=== PATIENT | female | born 1985 | race Caucasian/White ===

== ENCOUNTER 2018-05-07 18:29 | Emergency (ER) | payer BC, OTHER ==
[~2018-05-07] VITALS: Ht 167.6 cm; Wt 147.4 kg
[2018-05-07 18:40] VITALS: BP 121/68
--- NOTE | 2018-05-07 18:43 | NUR ---
PT AMBULATED TO ER LOBBY, WAITING FOR AN OPEN ER BED.
--- NOTE | 2018-05-07 20:30 | NUR ---
32/F PRESENT TO ER C/O ABDOMINAL PAIN AND COLD SYMPTOMS x 2 DAYS. DENIES NVD, CP OR SOB. C/O COUGH. ABD SOFT, NONTENDER AND ROUND. HX: HYPOTHYROID MEDS: SYNTHROID 150MCG
[2018-05-07] MEDS ORDERED: KETOROLAC 60 MG/2 ML VIAL IM ONE (20:45)
[2018-05-07 21:22] VITALS: BP 129/58
--- NOTE | 2018-05-07 21:23 | NUR ---
Patient discharged with v/s stable. Written and verbal after care instructions given and explained. Patient alert, oriented and verbalized understanding of instructions. Ambulatory with steady gait. All questions addressed prior to discharge. ID band removed. Patient advised to follow up with PMD. Rx of MOTRIN AND PREDNISONE given. Patient educated on indication of medication including possible reaction and side effects. Opportunity to ask questions provided and answered.
== END 2018-05-07 21:17 | disposition home or self-care (01) ==
LOC: MED 18:29
DX: R10.30 Lower abdominal pain, unspecified (principal); R05 Cough; R19.7 Diarrhea, unspecified; E07.9 Disorder of thyroid, unspecified
CPT/HCPCS: 81002; 81025; 96372; 99283; J1885

== ENCOUNTER 2022-11-24 21:20 | Emergency (ER) | payer OTHER ==
[~2022-11-24] VITALS: Ht 170.2 cm; Wt 158.8 kg
[2022-11-24 21:35] VITALS: BP 141/75
--- NOTE | 2022-11-24 21:38 | NUR ---
to lobby a/w bed ambulatory
--- NOTE | 2022-11-24 22:43 | NUR ---
Patient taken to bed 9.
--- NOTE | 2022-11-24 22:56 | NUR ---
Patient received on bed lying comfortably and awake. Alert and oriented x4. No acute distress. Complained of lower abdominal pain with scale of 10/10. Respirations even and unlabored.
[2022-11-24] MEDS ORDERED: LEVO0.155 PO (23:07)
--- NOTE | 2022-11-24 23:30 | NUR ---
Dr. Johnson examining patient.
[2022-11-24 23:42] LABS: APPEARANCE,URINE CLEAR (CLEAR); BILIRUBIN,URINE NEGATIVE (NEGATIVE); BLOOD, URINE NEGATIVE (NEGATIVE); COLOR,URINE YELLOW (YELLOW); LEUKOCYTE ESTERASE ,URINE NEGATIVE (NEGATIVE); NITRITE, URINE NEGATIVE (NEGATIVE); UGLUCOSE NEGATIVE (NEGATIVE)
[2022-11-25 00:38] LABS: BASOPHILS # (AUTO) 0.1 K/uL (0.00-0.22); BASOPHILS % (AUTO) 0.9 % (0.0-2.0); EOSINOPHILS # (AUTO) 0.2 K/uL (0-0.4); EOSINOPHILS % (AUTO) 1.6 % (0.0-4.0); HEMATOCRIT 33.6 % (36-48); HEMOGLOBIN 11.1 g/dL (12.0-16.0); LYMPHOCYTES # (AUTO) 3.8 K/uL (2.5-16.5); LYMPHOCYTES % (AUTO) 33.2 % (20.5-51.1); MEAN CORPUSCULAR HEMOGLOBIN 27 pg (27-31); MEAN CORPUSCULAR HGB CONC 33 g/dL (33-37); MEAN CORPUSCULAR VOLUME 82.6 fL (80-94); MONOCYTES # (AUTO) 0.6 K/uL (0.8-1.0); MONOCYTES % (AUTO) 5.5 % (1.7-9.3); NEUTROPHILS # (AUTO) 6.8 K/uL (1.8-7.7); NEUTROPHILS % (AUTO) 58.8 % (42.2-75.2); PLATELET COUNT (AUTO) 327 K/uL (140-450); RED BLOOD CELL COUNT(AUTO) 4.07 MIL/uL (4.20-5.40); RED CELL DISTRIBUTION WIDTH 14.5 % (11.6-13.7); WHITE BLOOD COUNT (AUTO) 11.5 K/uL (4.8-10.8)
[2022-11-25 00:57] LABS: ALBUMIN 3.4 g/dL (3.4-5.0); ANION GAP 11.2 (8-16); CARBON DIOXIDE 27.3 mmol/L (21-32); CREATININE 0.7 mg/dL (0.6-1.3); POTASSIUM 3.5 mmol/L (3.5-5.1); TOTAL BILIRUBIN 0.4 mg/dL (0.0-1.0)
--- NOTE | 2022-11-25 01:28 | NUR ---
PT TAKEN BY [facility]EPHANIE TO [facility] FOR WAIT AND RELEASE
--- NOTE | 2022-11-25 02:43 | NUR ---
pt back from painted post for [facility] via ambulance.
[2022-11-25] MEDS ORDERED: METR-435 PO (05:48)
[2022-11-25] MEDS ORDERED: NAPR-54 PO (05:48)
--- NOTE | 2022-11-25 05:55 | NUR ---
Note tyroneone in EDM - 11/25/22 at 0558 by [id number] Patient discharged by ER , Dr. Johnson, with v/s stable. Written and verbal after care instructions given and explained. Patient verbalized understanding. Ambulatory with steady gait. All questions addressed prior to discharge. Advised to follow up with PMD.
[2022-11-25 05:56] VITALS: BP 107/59
--- NOTE | 2022-11-25 05:58 | NUR ---
Patient discharged by ER MD, Dr. Johnson, with v/s stable. Written and verbal after care instructions given and explained. Patient alert, oriented and verbalized understanding of instructions. Ambulatory with steady gait. All questions addressed prior to discharge. ID band removed. Patient advised to follow up with PMD. Rx of Metronidazole and Flagyl given. Patient educated on indication of medication including possible reaction and side effects. Opportunity to ask questions provided and answered.
== END 2022-11-25 05:53 | disposition home or self-care (01) ==
LOC: MED 21:20
DX: N76.0 Acute vaginitis (principal); B96.89 Other specified bacterial agents as the cause of diseases classified elsewhere; E03.9 Hypothyroidism, unspecified; Z79.899 Other long term (current) drug therapy; Z79.1 Long term (current) use of non-steroidal anti-inflammatories (NSAID); Z79.2 Long term (current) use of antibiotics
CPT/HCPCS: 36415; 80053; 81003; 81025; 83605; 85025; 87040; 87210; 99283

== ENCOUNTER 2023-06-16 20:11 | Inpatient (IN) | payer OTHER ==
[~2023-06-16] VITALS: Ht 175.3 cm; Wt 145.1 kg
[2023-06-16 20:11] VITALS: BP 134/84; PULSE 86; RESP 16; TEMP 98; O2SAT 98
[~2023-06-16 20:11] MED LIST: LEVO0.155 PO; METR-435 PO; NAPR-54 PO
[2023-06-16] MEDS ORDERED: HYDROmorphone PFS 2 MG/ML SYR IVP ONE (20:55)
[2023-06-16] MEDS ORDERED: ONDANSETRON 4 MG/2 ML VIAL IVP ONE (20:55)
[2023-06-16] MEDS ORDERED: NACL 0.9% 1,000 ML IV SCH (20:55)
[2023-06-16 21:20] LABS: BASOPHILS # (AUTO) 0.1 K/uL (0.00-0.22); BASOPHILS % (AUTO) 0.4 % (0.0-2.0); EOSINOPHILS # (AUTO) 0.1 K/uL (0-0.4); EOSINOPHILS % (AUTO) 0.7 % (0.0-4.0); HEMATOCRIT 35.8 % (36-48); HEMOGLOBIN 11.8 g/dL (12.0-16.0); LYMPHOCYTES # (AUTO) 1.9 K/uL (2.5-16.5); LYMPHOCYTES % (AUTO) 15.5 % (20.5-51.1); MEAN CORPUSCULAR HEMOGLOBIN 27 pg (27-31); MEAN CORPUSCULAR HGB CONC 33 g/dL (33-37); MEAN CORPUSCULAR VOLUME 83.1 fL (80-94); MONOCYTES # (AUTO) 0.6 K/uL (0.8-1.0); MONOCYTES % (AUTO) 5.1 % (1.7-9.3); NEUTROPHILS # (AUTO) 9.7 K/uL (1.8-7.7); NEUTROPHILS % (AUTO) 78.3 % (42.2-75.2); PLATELET COUNT (AUTO) 284 K/uL (140-450); RED BLOOD CELL COUNT(AUTO) 4.31 MIL/uL (4.20-5.40); RED CELL DISTRIBUTION WIDTH 14.6 % (11.6-13.7); WHITE BLOOD COUNT (AUTO) 12.3 K/uL (4.8-10.8)
[2023-06-16 21:59] LABS: ALBUMIN 3.5 g/dL (3.4-5.0); ANION GAP 11.1 (8-16); CALCIUM 8.6 mg/dL (8.5-10.1); CARBON DIOXIDE 26.6 mmol/L (21-32); CREATININE 0.8 mg/dL (0.6-1.3); POTASSIUM 3.7 mmol/L (3.5-5.1); TOTAL BILIRUBIN 0.4 mg/dL (0.0-1.0); TOTAL PROTEIN, SERUM 7.3 g/dL (6.4-8.2)
[2023-06-16 22:18] LABS: APPEARANCE,URINE CLEAR (CLEAR); BILIRUBIN,URINE NEGATIVE (NEGATIVE); BLOOD, URINE 2+ (NEGATIVE); COLOR,URINE YELLOW (YELLOW); LEUKOCYTE ESTERASE ,URINE NEGATIVE (NEGATIVE); NITRITE, URINE NEGATIVE (NEGATIVE); PROTEIN,URINE NEGATIVE (NEGATIVE); UGLUCOSE NEGATIVE (NEGATIVE); UROBILINOGEN,URINE 0.2 EU/dL (0.2 - 1)
[2023-06-16 22:47] LABS: BACTERIA,URINE >30 (MANY) /HPF (None Seen); MUCUS,URINE 1+ /LPF (None Seen); RBC,URINE 0-5 /HPF (0-5); SQUAMOUS EPITHELIAL CELL,UR 4-10 (MOD) /LPF (0-3 (FEW)); WBC,URINE 0-5 /HPF (0-5)
[2023-06-17] VITALS (8 sets, daily range): BP systolic 122–154; BP diastolic 63–90; PULSE 72–95; RESP 14–36; TEMP 98.3–98.8; O2SAT 92–100
[2023-06-17] MEDS ORDERED: HYDROmorphone PFS 2 MG/ML SYR IVP ONE (05:00)
[2023-06-17] MEDS ORDERED: LEVO0.173 PO (05:10)
[2023-06-17] MEDS ORDERED: metroNIDAZOLE 500 MG/NS PREMIX 100 ML IV ONE (06:20)
[2023-06-17] MEDS ORDERED: cefTRIAXone 2,000 MG in DEXTROSE 5% 100 ML IV ONE (06:20)
[2023-06-17] MEDS ORDERED: cefTRIAXone 2,000 MG VIAL ONE (06:28)
[2023-06-17] MEDS ORDERED: MAGNESIUM OXIDE 400 MG TAB PO PRN (06:45)
[2023-06-17] MEDS ORDERED: MAG SULF 2000 MG/WATER PREMIX 50 ML IV PRN (06:45)
[2023-06-17] MEDS ORDERED: ACETAMINOPHEN 325 MG TAB PO PRN (06:45)
[2023-06-17] MEDS ORDERED: POTASSIUM CHLORIDE 10 MEQ TABER PO PRN (06:45)
[2023-06-17] MEDS ORDERED: HYDROcodone/APAP 5/325 MG 1 TAB TAB PO PRN (06:45)
[2023-06-17] MEDS ORDERED: MORPHINE SULFATE 2 MG/ML SYR IVP PRN ×2 (06:45→15:30)
[2023-06-17] MEDS ORDERED: KCL 20 MEQ IN 100 mL PREMIX 200 ML IV PRN (06:45)
[2023-06-17] MEDS: NACL 0.9% 1,000 ML IV SCH (10:23)
[2023-06-17] MEDS ORDERED: MIDAZOLAM 2 MG/2 ML VIAL ONE (12:15)
[2023-06-17] MEDS ORDERED: fentaNYL citrate 0.05 MG/ML VIAL ONE (12:16)
[2023-06-17] MEDS ORDERED: LIDOCAINE/EPI MPF 1%1:200000 30 ML VIAL INJ ONE (12:50)
[2023-06-17] MEDS ORDERED: SUGAMMADEX SODIUM 200 MG/2 ML VIAL IV ONE ×2 (13:40)
[2023-06-17] MEDS ORDERED: ACETAMINOPHEN 100 ML IV ONE (14:27)
[2023-06-17] MEDS ORDERED: BUPIVACAINE-MPF 0.25% 30 ML VIAL INJ ONE (15:17)
[2023-06-17] MEDS ORDERED: MORPHINE SULFATE 4 MG/ML SYR IV PRN (15:30)
[2023-06-17] MEDS ORDERED: fentaNYL citrate 0.05 MG/ML VIAL IVP SCH (16:20)
[2023-06-17] MEDS: HYDROmorphone 1 MG/ML AMP IVP PRN (20:23)
[2023-06-17] MEDS: metroNIDAZOLE 500 MG/NS PREMIX 100 ML IV SCH (21:00)
[2023-06-18] VITALS: BP 130/68; PULSE 77; PULSE 82; RESP 36; TEMP 98.3; O2SAT 96
[2023-06-18] MEDS: metroNIDAZOLE 500 MG/NS PREMIX 100 ML IV SCH ×4 (00:39→20:15)
[2023-06-18 04:00] VITALS: BP 108/60; PULSE 77; PULSE 81; RESP 36; TEMP 97.9; O2SAT 97
[2023-06-18 07:05] LABS: BASOPHILS % (AUTO) 0.3 % (0.0-2.0); HEMATOCRIT 32.6 % (36-48); HEMOGLOBIN 10.7 g/dL (12.0-16.0); LYMPHOCYTES # (AUTO) 2.2 K/uL (2.5-16.5); LYMPHOCYTES % (AUTO) 14.6 % (20.5-51.1); MEAN CORPUSCULAR HEMOGLOBIN 27 pg (27-31); MEAN CORPUSCULAR HGB CONC 33 g/dL (33-37); MEAN CORPUSCULAR VOLUME 83.1 fL (80-94); MONOCYTES % (AUTO) 6.5 % (1.7-9.3); NEUTROPHILS # (AUTO) 11.6 K/uL (1.8-7.7); NEUTROPHILS % (AUTO) 78.6 % (42.2-75.2); PLATELET COUNT (AUTO) 312 K/uL (140-450); RED BLOOD CELL COUNT(AUTO) 3.93 MIL/uL (4.20-5.40); RED CELL DISTRIBUTION WIDTH 14.4 % (11.6-13.7); WHITE BLOOD COUNT (AUTO) 14.7 K/uL (4.8-10.8)
[2023-06-18 07:25] LABS: ALBUMIN 3.1 g/dL (3.4-5.0); ANION GAP 11.7 (8-16); CALCIUM 8.1 mg/dL (8.5-10.1); CREATININE 0.7 mg/dL (0.6-1.3); MAGNESIUM 1.9 mg/dL (1.8-2.4); POTASSIUM 3.7 mmol/L (3.5-5.1); TOTAL BILIRUBIN 0.5 mg/dL (0.0-1.0); TOTAL PROTEIN, SERUM 6.4 g/dL (6.4-8.2)
[2023-06-18] MEDS: NACL 0.9% 1,000 ML IV SCH ×2 (07:39→09:54)
[2023-06-18 08:00] VITALS: BP 118/62; PULSE 78; PULSE 85; RESP 17; RESP 19; TEMP 98.5; O2SAT 98
[2023-06-18 12:00] VITALS: BP 117/60; PULSE 81; RESP 17; TEMP 98.2; O2SAT 98
[2023-06-18 16:00] VITALS: BP 109/65; PULSE 82; RESP 18; TEMP 98.3; O2SAT 97
[2023-06-18] MEDS: HYDROmorphone 1 MG/ML AMP IVP PRN (18:43)
[2023-06-18 20:00] VITALS: RESP 18; TEMP 97.9; O2SAT 97
[2023-06-19 04:00] VITALS: BP 127/70; PULSE 72; RESP 18; TEMP 98.1; O2SAT 97
[2023-06-19] MEDS: metroNIDAZOLE 500 MG/NS PREMIX 100 ML IV SCH ×2 (04:47→12:10)
[2023-06-19] MEDS: HYDROmorphone 1 MG/ML AMP IVP PRN (04:58)
[2023-06-19] MEDS: NACL 0.9% 1,000 ML IV SCH (04:59)
[2023-06-19 07:10] LABS: BASOPHILS # (AUTO) 0.1 K/uL (0.00-0.22); BASOPHILS % (AUTO) 0.8 % (0.0-2.0); EOSINOPHILS # (AUTO) 0.1 K/uL (0-0.4); EOSINOPHILS % (AUTO) 0.9 % (0.0-4.0); HEMATOCRIT 31.9 % (36-48); HEMOGLOBIN 10.4 g/dL (12.0-16.0); LYMPHOCYTES # (AUTO) 2.8 K/uL (2.5-16.5); LYMPHOCYTES % (AUTO) 28.1 % (20.5-51.1); MEAN CORPUSCULAR HEMOGLOBIN 27 pg (27-31); MEAN CORPUSCULAR HGB CONC 33 g/dL (33-37); MEAN CORPUSCULAR VOLUME 83.5 fL (80-94); MONOCYTES # (AUTO) 0.7 K/uL (0.8-1.0); MONOCYTES % (AUTO) 7.4 % (1.7-9.3); NEUTROPHILS # (AUTO) 6.4 K/uL (1.8-7.7); NEUTROPHILS % (AUTO) 62.8 % (42.2-75.2); PLATELET COUNT (AUTO) 288 K/uL (140-450); RED BLOOD CELL COUNT(AUTO) 3.82 MIL/uL (4.20-5.40); RED CELL DISTRIBUTION WIDTH 14.8 % (11.6-13.7); WHITE BLOOD COUNT (AUTO) 10.1 K/uL (4.8-10.8)
[2023-06-19] MEDS ORDERED: LEVOTHYROXINE 0.075 MG, LEVOTHYROXINE 0.1 MG PO SCH ×2 (07:30)
[2023-06-19] MEDS ORDERED: LEVOTHYROXINE 0.1 MG TAB ONE ×2 (07:33→07:45)
[2023-06-19] MEDS ORDERED: LEVOTHYROXINE 0.075 MG TAB ONE (07:33)
[2023-06-19 07:54] LABS: ANION GAP 8.3 (8-16); CALCIUM 7.9 mg/dL (8.5-10.1); CARBON DIOXIDE 30.1 mmol/L (21-32); CREATININE 0.6 mg/dL (0.6-1.3); POTASSIUM 3.4 mmol/L (3.5-5.1); TOTAL BILIRUBIN 0.5 mg/dL (0.0-1.0); TOTAL PROTEIN, SERUM 3.9 g/dL (6.4-8.2)
[2023-06-19 08:00] VITALS: BP 123/68; PULSE 88; RESP 18; TEMP 97.8; O2SAT 96
[2023-06-19] MEDS ORDERED: NON-FORMULARY ITEM (Levothyroxine Sodium* (Synthroid*) 0.175 MG) PO SCH (09:00)
[2023-06-19] MEDS ORDERED: MELO-174 PO (11:21)
[2023-06-19] MEDS ORDERED: ACET-1182 PO (11:21)
[2023-06-19] MEDS ORDERED: HYDROcodone/APAP 5/325 MG 1 TAB TAB PO SCH (11:49)
[2023-06-19 12:00] VITALS: BP 115/76; PULSE 74; RESP 18; TEMP 98.4; O2SAT 95
[2023-06-19 14:23] VITALS: O2SAT 94
== END 2023-06-19 17:55 | disposition home or self-care (01) | DRG 228 ==
LOC: MED 20:11 → MMU 06-17 06:44 → MTU 06-17 07:30 → MIC 06-17 14:00 → MTU 06-17 19:15
PROVIDERS: ADMIT Student in an Organized Health Care Education/Training Program; ATTEND Student in an Organized Health Care Education/Training Program
PROC: 0WUF0JZ Supplement Abdominal Wall with Synthetic Substitute, Open Approach (ICD-10-PCS; principal; 2023-06-17 12:30)
DX: K42.0 Umbilical hernia with obstruction, without gangrene (principal); J96.01 Acute respiratory failure with hypoxia; D72.829 Elevated white blood cell count, unspecified; E03.9 Hypothyroidism, unspecified; E66.01 Morbid (severe) obesity due to excess calories; I10 Essential (primary) hypertension; Z68.42 Body mass index [BMI] 45.0-49.9, adult
CPT/HCPCS: 36415; 71045; 80053; 81001; 83690; 83735; 85025; 87040; 87081; 87086; 93005; 96365; 96368; 96375; 99285; C1781; J0696; J1170; J1644; J2001; J2250; J2405; J3010; J3490; J7060; Q0092; Q9967

== ENCOUNTER 2023-06-30 23:04 | Inpatient (IN) | payer OTHER ==
[~2023-06-30] VITALS: Ht 175.3 cm; Wt 158.8 kg
[~2023-06-30 23:04] MED LIST changes: +ACET-1182 PO; -LEVO0.155 PO; +LEVO0.173 PO; +MELO-174 PO; -METR-435 PO; -NAPR-54 PO
[2023-06-30 23:10] VITALS: BP 128/66; PULSE 76; RESP 17; TEMP 98.1; O2SAT 97
[2023-07-01] MEDS ORDERED: KETOROLAC 30 MG/ML VIAL IM ONE (01:40)
[2023-07-01] MEDS ORDERED: HYDROcodone/APAP 5/325 MG 1 TAB TAB PO ONE (01:40)
[2023-07-01] MEDS ORDERED: cephALEXin 500 MG CAP PO ONE (01:40)
[2023-07-01] MEDS ORDERED: NACL 0.9% 1,000 ML IV ONE (04:50)
[2023-07-01 05:26] LABS: BASOPHILS # (AUTO) 0.1 K/uL (0.00-0.22); BASOPHILS % (AUTO) 1.6 % (0.0-2.0); EOSINOPHILS # (AUTO) 0.1 K/uL (0-0.4); EOSINOPHILS % (AUTO) 1.7 % (0.0-4.0); HEMATOCRIT 35.2 % (36-48); HEMOGLOBIN 11.7 g/dL (12.0-16.0); LYMPHOCYTES # (AUTO) 4.3 K/uL (2.5-16.5); LYMPHOCYTES % (AUTO) 49.2 % (20.5-51.1); MEAN CORPUSCULAR HEMOGLOBIN 27 pg (27-31); MEAN CORPUSCULAR HGB CONC 33 g/dL (33-37); MEAN CORPUSCULAR VOLUME 82.6 fL (80-94); MONOCYTES # (AUTO) 0.5 K/uL (0.8-1.0); MONOCYTES % (AUTO) 5.5 % (1.7-9.3); NEUTROPHILS # (AUTO) 3.7 K/uL (1.8-7.7); PLATELET COUNT (AUTO) 287 K/uL (140-450); RED BLOOD CELL COUNT(AUTO) 4.26 MIL/uL (4.20-5.40); RED CELL DISTRIBUTION WIDTH 14.5 % (11.6-13.7); WHITE BLOOD COUNT (AUTO) 8.8 K/uL (4.8-10.8)
[2023-07-01 05:43] LABS: ANION GAP 13.8 (8-16); CALCIUM 8.5 mg/dL (8.5-10.1); CARBON DIOXIDE 26.9 mmol/L (21-32); CREATININE 0.7 mg/dL (0.6-1.3); POTASSIUM 3.7 mmol/L (3.5-5.1)
[2023-07-01 05:50] LABS: LACTIC ACID 0.8 mmol/L (0.4-2.0)
[2023-07-01] MEDS ORDERED: PIPERACILLIN/TAZOBACTAM 3.375 GM in DEXTROSE 5% 50 ML IV ONE (06:10)
[2023-07-01] MEDS ORDERED: PIPERACILLIN/TAZOBACTAM 3.375 GM VIAL IV ONE (06:37)
[2023-07-01] MEDS ORDERED: ACETAMINOPHEN 325 MG TAB PO PRN (09:50)
[2023-07-01] MEDS ORDERED: LORazepam 2 MG/ML VIAL IVP PRN (09:50)
[2023-07-01] MEDS ORDERED: ONDANSETRON 4 MG/2 ML VIAL IVP PRN (09:50)
[2023-07-01] MEDS: NACL 0.9% 1,000 ML IV SCH ×2 (14:50→19:06)
[2023-07-01] MEDS: PIPERACILLIN/TAZOBACTAM 3.375 GM in DEXTROSE 5% 50 ML IV SCH ×2 (14:50→20:20)
[2023-07-01 17:22] VITALS: PULSE 68; RESP 20
[2023-07-01 20:00] VITALS: BP 132/76; PULSE 86; RESP 19; TEMP 97.8; O2SAT 96
[2023-07-01] MEDS: MORPHINE SULFATE 2 MG/ML SYR IVP PRN (22:06)
[2023-07-02] MEDS: NACL 0.9% 1,000 ML IV SCH ×2 (02:53→09:50)
[2023-07-02 04:00] VITALS: BP 122/74; PULSE 68; RESP 18; TEMP 98.2; O2SAT 96
[2023-07-02] MEDS: PIPERACILLIN/TAZOBACTAM 3.375 GM in DEXTROSE 5% 50 ML IV SCH ×2 (04:28→13:45)
[2023-07-02 05:21] LABS: BASOPHILS % (AUTO) 0.4 % (0.0-2.0); EOSINOPHILS # (AUTO) 0.2 K/uL (0-0.4); HEMATOCRIT 33.3 % (36-48); HEMOGLOBIN 10.9 g/dL (12.0-16.0); LYMPHOCYTES # (AUTO) 3.1 K/uL (2.5-16.5); LYMPHOCYTES % (AUTO) 35.8 % (20.5-51.1); MEAN CORPUSCULAR HEMOGLOBIN 27 pg (27-31); MEAN CORPUSCULAR HGB CONC 33 g/dL (33-37); MEAN CORPUSCULAR VOLUME 83.3 fL (80-94); MONOCYTES # (AUTO) 0.6 K/uL (0.8-1.0); MONOCYTES % (AUTO) 7.1 % (1.7-9.3); NEUTROPHILS # (AUTO) 4.8 K/uL (1.8-7.7); NEUTROPHILS % (AUTO) 54.7 % (42.2-75.2); PLATELET COUNT (AUTO) 274 K/uL (140-450); RED CELL DISTRIBUTION WIDTH 14.4 % (11.6-13.7); WHITE BLOOD COUNT (AUTO) 8.8 K/uL (4.8-10.8)
[2023-07-02 07:42] LABS: ALBUMIN 3.1 g/dL (3.4-5.0); ANION GAP 15.5 (8-16); CALCIUM 7.8 mg/dL (8.5-10.1); CARBON DIOXIDE 25.1 mmol/L (21-32); CREATININE 0.8 mg/dL (0.6-1.3); MAGNESIUM 1.9 mg/dL (1.8-2.4); POTASSIUM 3.6 mmol/L (3.5-5.1); TOTAL BILIRUBIN 0.4 mg/dL (0.0-1.0); TOTAL PROTEIN, SERUM 6.6 g/dL (6.4-8.2)
[2023-07-02 08:00] VITALS: PULSE 74; RESP 20
[2023-07-02] MEDS: MORPHINE SULFATE 2 MG/ML SYR IVP PRN (11:08)
[2023-07-02] MEDS ORDERED: CEPH-588 PO (14:27)
[2023-07-02 14:49] VITALS: BP 111/67; PULSE 74; RESP 20; TEMP 97.8
== END 2023-07-02 15:53 | disposition home or self-care (01) | DRG 721 ==
LOC: MED 23:04 → MTU 07-01 09:51
PROVIDERS: ADMIT Hospitalist; ATTEND Hospitalist
DX: T81.41XA Infection following a procedure, superficial incisional surgical site, initial encounter (principal); E44.0 Moderate protein-calorie malnutrition; Z68.43 Body mass index [BMI] 50.0-59.9, adult; E03.9 Hypothyroidism, unspecified; E66.01 Morbid (severe) obesity due to excess calories; Y83.8 Other surgical procedures as the cause of abnormal reaction of the patient, or of later complication, without mention of misadventure at the time of the procedure; Y92.89 Other specified places as the place of occurrence of the external cause
CPT/HCPCS: 36415; 80048; 80053; 83605; 83735; 85025; 87040; 87081; 96361; 96365; 96372; 96375; 99285; J1885; J2270; J2543; J7060